=== PATIENT | male | born 1965 | race Caucasian/White ===

== ENCOUNTER 2020-06-11 14:33 | Outpatient (CLI) | payer OTHER, SELFPAY | END 2020-06-11 14:34 | disposition home or self-care (01) | LOC: ANHCOVIDVC 14:34 | PROVIDERS: PCP Podiatrist Foot & Ankle Surgery | DX: Z23 Encounter for immunization (principal) | CPT/HCPCS: 0001A; 91300 ==

== ENCOUNTER 2020-07-02 14:42 | Outpatient (CLI) | payer OTHER, SELFPAY | END 2020-07-02 14:43 | disposition home or self-care (01) | LOC: ANHCOVIDVC 14:42 | PROVIDERS: PCP Podiatrist Foot & Ankle Surgery | DX: Z23 Encounter for immunization (principal) | CPT/HCPCS: 0002A; 91300 ==